=== PATIENT | female | born 1960 | race Caucasian/White ===

== ENCOUNTER → 2019-08-29 | Outpatient (CLI) | payer MEDICARE ==
[~2019-08-29] MED LIST: ADVIL200 MG PO; ALDACTONE 25MG25 M1 PO; AMBIEN 5MG TABLE5 MG PO; AMOXICILLIN 50500 MG PO; AMOXICILLIN 8751 TAB PO; AMOXICILLIN875 MG PO; APRESOLINE50 MG PO; ASPIRIN 81M81 MG/TA2 PO; ASPIRIN E.C. 8181 MG PO; ATARAX 25MG25 MG/TAB PO; CARAFATE 1GM1 G PO; CARDURA4 MG PO; CATAPRES0.3 MG PO; CIPRODEX OT; COZAAR 25MG25 MG/TAB PO; COZAAR100 MG PO; CYMBALTA 60MG60 MG PO; DESYREL 100MG100 MG PO; DILAUDID 2MG TAB2 MG PO; DOXYCYCLINE 10100 MG PO; FERROUS SU325 MG/TAB PO; FLAGYL 250250 MG/TAB PO; KEPPRA 500MG500 MG PO; KLONOPIN 0.5MG0.5 MG PO; KLOR-CON M2020 MEQ PO; LEVAQUIN 750MG750 M1 PO; LIPITOR 10MG10 MG PO; LIPITOR20 MG PO; LOPRESSOR 550 MG/TAB PO; LOPRESSOR100 MG PO; MAG-OX 400400 MG/TAB PO; MEDROL 4MG DOSPA4 MG PO; MIDRIN 325 MG-11 CAP PO; MOTRIN 800800 MG/TAB PO; NEURONTIN300 MG/CAP PO; NEURONTIN600 MG/TAB PO; NEXIUM 20MG20 MG PO; NICODERM C21 MG/PATC TD; NORCO 325 MG-101 TAB PO; NORCO 325 MG-51 TAB PO; NORCO 325 MG-7.1 TAB PO; PEPCID 20MG TAB20 MG PO; PHENERGAN 25 TA25 MG PO; PHENERGAN25 MG RC; PLAVIX 75MG TAB75 MG PO; PREDNISONE10 MG PO; PREDNISONE20 MG PO; PROTONIX 40MG T40 MG PO; RESTORIL 1515 MG/CAP PO; RESTORIL 77.5 MG/CAP; RESTORIL 77.5 MG/CAP PO; ROBAXIN 75750 MG/TAB PO; SOMA 350MG350 MG/TAB PO; TOPROL XL 50MG50 MG PO; TYLENOL W/COD1 UDTAB PO; ULTRAM 50MG TAB50 MG PO; VANCOCIN H125 MG/CAP PO; ZANAFLEX2 MG PO; ZOFRAN 4MG T4 MG/TAB PO; ZOFRAN ODT4 MG PO
== END ==
LOC: COL.RAD 07:23
DX: R10.11 Right upper quadrant pain (principal)

== ENCOUNTER 2022-05-08 16:53 | Emergency (ER) | payer MEDICARE ==
[~2022-05-08] VITALS: Ht 154.9 cm; Wt 53.4 kg
[2022-05-08 17:28] LABS: BASO % 0.6 % (0.0-2.0); EOS # 0.2 K/mm3 (0.0-0.7); EOS % 2.8 % (0.0-4.0); GRAN # 3.7 K/mm3 (1.4-6.5); GRAN % 56.1 % (42.2-75.2); HEMOGLOBIN 10.3 g/dl (12.5-16.0); LYMPH # 2.1 K/mm3 (1.2-3.4); LYMPH % 31.1 % (20.0-51.0); MEAN CELL VOLUME 77 fl (80.0-100.0); MEAN CORPUSCULAR HEMOGLOBIN 26 pg (27-31); MEAN CORPUSCULAR HGB CONC 33 g/dl (33.0-37.0); MEAN PLATELET VOLUME 8.8 fl (7.4-10.4); MONO # 0.6 K/mm3 (0.1-0.6); PLATELET COUNT 376 K/mm3 (130-400); RED BLOOD COUNT 4.04 M/mm3 (4.10-5.30); REDCELL DISTRIBUTION WIDTH-CV 19.1 % (11.5-14.5)
[2022-05-08 17:34] LABS: HEMATOCRIT 31.2 % (37.0-47.0)
[2022-05-08 17:43] LABS: ALANINE AMINOTRANSFERASE 17 U/L (0-55); ALBUMIN 3.8 gm/dL (3.4-4.8); ALCOHOL(ethanol),MEDICAL 269 mg/dL (0-10); ALKALINE PHOSPHATASE 114 U/L (40-150); ANION GAP 19 mmol/L (7-16); AST,SGOT 24 U/L (5-34); BILIRUBIN,TOTAL 0.3 mg/dL (0.2-1.2); BLOOD UREA NITROGEN 4 mg/dL (10-20); CALCIUM 9.3 mg/dL (8.4-10.2); CARBON DIOXIDE 22 mmol/L (23-31); CHLORIDE 91 mmol/L (98-107); GLUCOSE 90 mg/dL (70-99); SODIUM 132 mmol/L (136-145); TOTAL PROTEIN 6.3 gm/dL (6.2-8.1)
[2022-05-08 17:51] LABS: TROPONIN-I < 0.010 ng/mL (0.00-0.033)
== END 2022-05-08 19:15 | disposition home or self-care (01) ==
LOC: COL.ER 16:53
PROVIDERS: Physician Assistant
DX: F10.129 Alcohol abuse with intoxication, unspecified (principal); E87.6 Hypokalemia; D64.9 Anemia, unspecified; Y90.8 Blood alcohol level of 240 mg/100 ml or more; Z86.73 Personal history of transient ischemic attack (TIA), and cerebral infarction without residual deficits
CPT/HCPCS: J2405; J7030